=== PATIENT | male | born 1990 | race Caucasian/White ===

== ENCOUNTER → 2017-12-18 11:21 | Outpatient (REF) | payer MEDICAID, SELFPAY ==
[2017-12-18 14:03] LABS: Amphetamine/Metha Screen,Urine Negative ng/mL (<1000); Barbiturates Screen,Urine Negative ng/mL (<200); Benzodiazepines Screen,Urine Positive ng/mL (200); Cannabinoid Screen,Urine Positive ng/mL (<50); Cocaine Screen,Urine Negative ng/g (<300); Methadone Screen,Urine Negative ng/mL (<300); Opiate Screen,Urine Positive ng/mL (<300); Phencyclidine Screen,Urine Negative ng/mL (<25)
== END ==
LOC: LAB 11:21
PROVIDERS: Visit Provider Physician Assistant
DX: Z79.899 Other long term (current) drug therapy (principal)
CPT/HCPCS: 80305

== ENCOUNTER 2017-12-27 14:09 | Emergency (ER) | payer MEDICAID, SELFPAY ==
--- NOTE | 2017-12-27 | CT_ITS ---
CT cervical spine wo con Ordering Physician: Ga Jacobs MD Patient Age: 27 years: Male HISTORY: Dizziness. Fall. Laceration chin and above left. TECHNIQUE: Helical CT scanning performed the cervical spine with sagittal and coronal reconstructions on CT workstation COMPARISON :CT facial bones from today no prior studies available FINDINGS Cervical spine is intact with no fracture nor subluxation. . The vertebral bodies are intact. Normal alignment. Prevertebral soft tissues normal. Disc spaces well-maintained. The facets satisfactory with normal relationships. C1-C2 appearance and relationships normal. Base of skull intact. . Generous lymphoid tissue along the base the time reflecting generous lingual tonsil most likely. Scattered moderate-sized nodes throughout the neck and typical of age reflect reactive nodes in this thin patient. . Dental caries again noted and warrants dental follow-up IMPRESSION: Cervical spine intact with no fracture nor subluxation. No acute findings . dental caries warrants dental follow-up .
[2017-12-27 13:46] VITALS: BP 139/75; PULSE 82; RESP 22; TEMP 36.7; O2SAT 100
--- NOTE | 2017-12-27 13:57 | CT_ITS ---
CT facial bones wo con Ordering Physician: Ga Jacobs MD Patient Age: 27 years: Male HISTORY.: ITS.REASON: seizure, fell and hit head Laceration at chin and above LiP TECHNIQUE: Helical CT scanning performed through the facial bones with sagittal and coronal reconstructions on CT workstation. COMPARISON :None FINDINGS No discrete acute facial bone fractures. Slight contour variation the left nasal bone may reflect anatomical variation versus old injury. The Lack of soft tissue swelling here speaks against acute fracture Moderate-generous Right ethmoid sinus disease., Diffuse opacification of several of the posterior right ethmoid with mild mucosal thickening elsewhere throughout ethmoid air cells.. Most likely inflammatory changes. Doubt hemorrhage is suggested by VRC. Borderline to mild mild mucosal thickening elsewhere throughout the ethmoid air cells extending into left frontal sinus.. No air-fluid levels at sinuses. Sphenoid sinus clear. Frontal sinuses clear. Mild mucosal thickening inferior right maxillary sinus... Mild/moderate engorgement nasal turbinates. Minor deviation nasal septum. Small pao bullosa right middle turbinate noted. Maxillary sinuses are clear except to note mild mucosal thickening inferior right maxillary sinus axial slice 1 The facial bones are intact with no fracture evident. Nasal bone included, intact. Portions of the image skull unremarkable on this study. Note dental caries which would benefit from dental evaluation and follow-up ===IMPRESSION: ======= No facial bone fracture. Incidental paranasal sinus disease Most notable opacity involving posterior right ethmoid air cells.
--- NOTE | 2017-12-27 13:57 | CT_ITS ---
CT head/brain wo con Ordering Physician: Ga Jacobs MD Patient Age: 27 years: Male HISTORY: ITS.REASON: seizure, fell and hit head headach dizziness.. TECHNIQUE: Standard axial CT of head without contrast. Bone and brain windows performed and reviewed. Previous study December 27, 2017 for comparison. FINDINGS: The brain appears within normal limits with no acute adrenal findings. No hemorrhage No mass. No mass effect. No subdural collection. No territorial infarct. The yanez and white matter patterns and interface appears satisfactory. Ventricles and basal cisterns appear normal. Posterior fossa unremarkable.Skull intact.. Mastoid air cells well-developed and clear. Middle ear clear.. Right ethmoid sinus with diffuse mucosal thickening which opacifies several several of the posterior right ethmoid air cells. Borderline mucosal thickening elsewhere at ethmoid & extending into the inferior left frontal sinus. No air-fluid levels at sinuses. Sphenoid sinus clear. Maxillary sinuses are clear except to note mild mucosal thickening inferior right maxillary sinus axial slice 1 . ===IMPRESSION: ======= .. No acute intracranial findings Normal CT of the brain without contrast Incidental paranasal sinus disease as in text
--- NOTE | 2017-12-27 14:03 | XR_ITS ---
XR chest 2V Ordering Physician: Ga Jacobs MD Patient Age: 27 years: Male HISTORY: ITS.REASON: possible seizure, fall, confusion Seizure fall confusion dizzy TECHNIQUE: PA and lateral chest COMPARISON :No previous chest film. FINDINGS The lungs appear well expanded and clear with no active disease. No pneumonia. No pneumothorax. No pleural effusion. Chest wall T-spine unremarkable. The heart is normal in size with shaji and mediastinal structures satisfactory IMPRESSION: Lungs clear no active disease in the chest.
[2017-12-27 14:18] LABS: Basophils % 0.2 % (0.1-2.0); Eosinophils % 0.2 % (0.1-12.0); Hematocrit 49.7 % (42.0-52.0); Lymphocytes % 7.3 K/mm3 (10-50); Mean Corpuscular HGB Conc 32.3 g/dL (31.8-35.4); Mean Corpuscular Volume 96.1 fl (80-94); Mean Platelet Volume 8.1 fl (7.4-10.4); Monocytes # 0.6 K/mm3 (0.1-1.0); Monocytes % 4.1 % (1.7-9.3); Neutrophils # 12.3 K/mm3 (1.8-7.8); Neutrophils % 88.1 % (37.0-80.0); Platelet Count 307 K/mm3 (142-424); Red Blood Count 5.17 M/mm3 (4.60-6.20); Red Cell Distribution Width 13.1 % (11.5-17.5)
[2017-12-27 14:22] LABS: MANUAL DIFFERENTIAL MANUAL DIFFERENTIAL (MANUAL DIFF)
[2017-12-27 14:36] LABS: Alanine Aminotransferase 28 U/L (12-78); Albumin Level 4.5 gm/dL (3.4-5.0); Albumin/Globulin Ratio 1.3 (1.1-1.8); Alkaline Phosphatase 93 U/L (46-116); Anion Gap 19.2 mEq/L (5-15); Aspartate Amino Transferase 21 U/L (15-37); Bilirubin,Total 0.3 mg/dL (0.2-1.0); Blood Urea Nitrogen 14 mg/dL (7-18); Calcium 9.3 mg/dL (8.5-10.1); Carbon Dioxide 20 mmol/L (21.0-32.0); Chloride 102 mmol/L (98-107); Creatinine Clearance Estimated 77 mL/min (0-300); Estimated Glomerular Filt Rate 66 ml/min (>60); GFR (African American) 80 ML/MIN (>60); Globulin 3.6 gm/dl (1.3-3.2); Glucose 180 mg/dL (74-106); Potassium 4.2 mmoL/L (3.5-5.1); Sodium 137 mmol/L (136-145); Total Protein,Serum 8.1 gm/dL (6.4-8.2)
[2017-12-27 14:39] LABS: Acetaminophen 0 ug/mL (10-30); Ethyl Alcohol 0 mg/dL (0-99)
[2017-12-27 14:45] LABS: Lymphocytes % 11 % (10-50); Monocytes % 3 % (2-9); Neutrophils % 85 % (42-76); Total Cells Counted 100
[2017-12-27 14:46] LABS: Platelet Estimate Normal; RBC Morphology Normal
--- NOTE | 2017-12-27 14:56 | [facility].EDSEIZ ---
ED Disposition Clinical Impression: Seizure disorder, Benzodiazepine withdrawal, Anxiety Disposition: Home, Self-Care Condition on Discharge: Fair Instructions: DI for Seizure Disorder -- Adult, DI for Seizure (Not Epilepsy/Seizure Disorder), DI for Seizure Disorder -- Child Additional Instructions: 1- star tdilantin 100 mg po bid. 2- xanax 0.5 mg po bid prn 3- follow up with marti in am. 4- seizure precautions. 5-off work x 3 days 6- return if needed. Prescriptions: ALPRAZolam [Xanax 0.5mg tab] 0.5 mg PO Q12 #6 tab Phenytoin Sodium Extended [Dilantin] 100 mg PO Q12 #60 cap Referrals: Candy Wagner PA [Primary Care Provider] - - Critical Care Critical Care Time: No Attestation: On 12/27/17, the high probability of a clinically significant, sudden or life threatening deterioration of the following system(s) required my full and direct attention, intervention and personal management. The time I documented below is in addition to time spent performing reported procedures but includes the following listed in this critical care notation. Medical Decision Making Vital Signs: 12/27/17 13:46 12/27/17 17:30 Temperature 98.1 F 98.1 F Temperature Source Oral Temporal Artery Scan Pulse Rate 70 Pulse Rate [Right Brachial] 82 Respiratory Rate 22 18 Blood Pressure 125/80 Blood Pressure [Right Arm] 139/75 Blood Pressure Mean [Right Arm] 96 Blood Pressure Source Automatic Cuff Blood Pressure Source [Right Arm] Automatic Cuff Blood Pressure Position Sitting Blood Pressure Position [Right Arm] Sitting 02 Sat by Pulse Oximetry 100 Oxygen Delivery Method Room Air Room Air - Lab Data Lab Results 12/27/17 13:45: WBC 14.0 H, RBC 5.17, Hgb 16.0, Hct 49.7, MCV 96.1 H, MCH 31.0, MCHC 32.3, RDW 13.1, Plt Count 307, MPV 8.1, Neut % (Auto) 88.1 H, Lymph % (Auto) 7.3 L, [place] % (Auto) 4.1, Eos % (Auto) 0.2, Baso % (Auto) 0.2, Neut # (Auto) 12.3 H, Lymph # (Auto) 1.0, [place] # (Auto) 0.6, Eos # (Auto) 0.0, Baso # (Auto) 0.0, Total Counted 100, Neutrophils % (Manual) 85 H, Lymphocytes % (Manual) 11, Atypical Lymphs % 1.0, Monocytes % (Manual) 3, Platelet Estimate Normal, RBC Morphology Normal 12/27/17 13:45: Sodium 137, Potassium 4.2, Chloride 102, Carbon Dioxide 20 L, Anion Gap 19.2 H, BUN 14, Creatinine 1.30, Estimated Creat Clear 77, Estimated GFR 66, Est GFR ( Amer) 80, Glucose 180 H, Calcium 9.3, Total Bilirubin 0.3, AST 21, ALT 28, Alkaline Phosphatase 93, Total Protein 8.1, Albumin 4.5, Globulin 3.6 H, Albumin/Globulin Ratio 1.3, Acetaminophen 0 L, Plasma/Serum Alcohol 0 12/27/17 15:10: Lactic Acid 1.2 12/27/17 15:28: Urine Color Yellow, Urine Appearance Cloudy, Urine pH 5.5, Ur Specific [place] >= 1.030, Urine Protein 2+, Urine Glucose (UA) Negative, Urine Ketones Negative, Urine Blood Trace-i, Urine Nitrate Negative, Urine Bilirubin Negative, Urine Urobilinogen 0.2, Ur Leukocyte Esterase Negative, Urine RBC Occasional, Urine WBC Occasional, Amorphous Sediment 1+, Urine Bacteria 2+, Coarse Granular Casts 3-5, Urine Mucus 1+ 12/27/17 15:28: Urine Opiates Screen Negative, Ur Barbituates Screen Negative, Ur Phencyclidine Scrn Negative, Ur Amphetamines Screen Negative, U Methamphetamines Scrn Negative, U Benzodiazepines Scrn Negative, Urine Cocaine Screen Negative, U Marijuana (THC) Screen Negative Result diagrams: 12/27/17 13:45 12/27/17 13:45 Orders (Tests/Meds): ED MEDICATIONS Discontinued Medications Generic Name Dose Route Start Last Admin Trade Name Freq PRN Reason Stop Dose Admin Ceftriaxone Sodium 1 gm/ 50 mls @ 100 mls/hr 12/27/17 14:45 12/27/17 15:23 Sodium Chloride IV 01/10/18 14:44 100 mls/hr Q24H HUNTER Administration Protocol Phenytoin Sodium 1,000 mg/ 120 mls @ 300 mls/hr 12/27/17 16:44 12/27/17 17:11 Sodium Chloride IV 12/27/17 17:07 300 mls/hr ONCE ONE Administration ORDERS Category Date Time Status CT facial bones wo con Stat C
--- NOTE | 2017-12-27 15:00 | ED_ITS ---
ED Disposition Clinical Impression: Seizure disorder, Benzodiazepine withdrawal, Anxiety Disposition: Home, Self-Care Condition on Discharge: Fair Instructions: DI for Seizure Disorder -- Adult, DI for Seizure (Not Epilepsy/ Seizure Disorder), DI for Seizure Disorder -- Child Additional Instructions: 1- star tdilantin 100 mg po bid. 2- xanax 0.5 mg po bid prn 3- follow up with marti in am. 4- seizure precautions. 5-off work x 3 days 6- return if needed. Prescriptions: ALPRAZolam [Xanax 0.5mg tab] 0.5 mg PO Q12 #6 tab Phenytoin Sodium Extended [Dilantin] 100 mg PO Q12 #60 cap Referrals: Candy Wagner PA [Primary Care Provider] - - Critical Care Critical Care Time: No Attestation: On 12/27/17, the high probability of a clinically significant, sudden or life threatening deterioration of the following system(s) required my full and direct attention, intervention and personal management. The time I documented below is in addition to time spent performing reported procedures but includes the following listed in this critical care notation. Medical Decision Making Vital Signs: 12/27/17 13:46 12/27/17 17:30 Temperature 98.1 F 98.1 F Temperature Source Oral Temporal Artery Scan Pulse Rate 70 Pulse Rate [Right Brachial] 82 Respiratory Rate 22 18 Blood Pressure 125/80 Blood Pressure [Right Arm] 139/75 Blood Pressure Mean [Right Arm] 96 Blood Pressure Source Automatic Cuff Blood Pressure Source [Right Arm] Automatic Cuff Blood Pressure Position Sitting Blood Pressure Position [Right Arm] Sitting 02 Sat by Pulse Oximetry 100 Oxygen Delivery Method Room Air Room Air - Lab Data Lab Results 12/27/17 13:45: WBC 14.0 H, RBC 5.17, Hgb 16.0, Hct 49.7, MCV 96.1 H, MCH 31.0, MCHC 32.3, RDW 13.1, Plt Count 307, MPV 8.1, Neut % (Auto) 88.1 H, Lymph % (Auto ) 7.3 L, [place] % (Auto) 4.1, Eos % (Auto) 0.2, Baso % (Auto) 0.2, Neut # (Auto) 12.3 H, Lymph # (Auto) 1.0, [place] # (Auto) 0.6, Eos # (Auto) 0.0, Baso # (Auto) 0.0, Total Counted 100, Neutrophils % (Manual) 85 H, Lymphocytes % (Manual) 11, Atypical Lymphs % 1.0, Monocytes % (Manual) 3, Platelet Estimate Normal, RBC Morphology Normal 12/27/17 13:45: Sodium 137, Potassium 4.2, Chloride 102, Carbon Dioxide 20 L, Anion Gap 19.2 H, BUN 14, Creatinine 1.30, Estimated Creat Clear 77, Estimated GFR 66, Est GFR ( Amer) 80, Glucose 180 H, Calcium 9.3, Total Bilirubin 0.3, AST 21, ALT 28, Alkaline Phosphatase 93, Total Protein 8.1, Albumin 4.5, Globulin 3.6 H, Albumin/Globulin Ratio 1.3, Acetaminophen 0 L, Plasma/Serum Alcohol 0 12/27/17 15:10: Lactic Acid 1.2 12/27/17 15:28: Urine Color Yellow, Urine Appearance Cloudy, Urine pH 5.5, Ur Specific [place] >= 1.030, Urine Protein 2+, Urine Glucose (UA) Negative, Urine Ketones Negative, Urine Blood Trace-i, Urine Nitrate Negative, Urine Bilirubin Negative, Urine Urobilinogen 0.2, Ur Leukocyte Esterase Negative, Urine RBC Occasional, Urine WBC Occasional, Amorphous Sediment 1+, Urine Bacteria 2+, Coarse Granular Casts 3-5, Urine Mucus 1+ 12/27/17 15:28: Urine Opiates Screen Negative, Ur Barbituates Screen Negative, Ur Phencyclidine Scrn Negative, Ur Amphetamines Screen Negative, U Methamphetamines Scrn Negative, U Benzodiazepines Scrn Negative, Urine Cocaine Screen Negative, U Marijuana (THC) Screen Negative Result diagrams: 12/27/17 13:45 12/27/17 13:45 Orders (Tests/Meds): ED MEDICATIONS
[2017-12-27 15:28] LABS: Lactic Acid 1.2 mmol/L (0.4-2.0)
[2017-12-27 15:42] LABS: Microscopic, Urine URINE MICROSCOPIC (MICROSCOPIC)
[2017-12-27 15:44] LABS: Appearance,Urine CLOUDY (Clear); Bilirubin,Urine Negative (Negative); Blood, Urine TRACE-I (Negative); Color,Urine YELLOW (Yellow); Glucose,Urine (UA) Negative (Negative); Ketones,Urine Negative (Negative); Leukocyte Esterase,Urine Negative (Negative); Nitrate,Urine Negative (Negative); PH,Urine 5.5 (5.0-8.5); Protein,Urine 2+ (Negative); Specific Gravity, Urine >= 1.030 (1.005-1.030); Urobilinogen,Urine 0.2 EU/dl (0.2)
[2017-12-27 15:54] LABS: Amphetamine/Metha Screen,Urine Negative ng/mL (<1000); Barbiturates Screen,Urine Negative ng/mL (<200); Benzodiazepines Screen,Urine Negative ng/mL (200); Cannabinoid Screen,Urine Negative ng/mL (<50); Cocaine Screen,Urine Negative ng/g (<300); Methadone Screen,Urine Negative ng/mL (<300); Opiate Screen,Urine Negative ng/mL (<300); Phencyclidine Screen,Urine Negative ng/mL (<25)
[2017-12-27 15:55] LABS: Amorphous Sediment,Urine 1+ /lpf; Bacteria,Urine 2+ /lpf; Mucus,Urine 1+ /lpf; RBC,Urine Occasional #/hpf (0-3); WBC,Urine Occasional #/hpf (0-3)
[2017-12-27 17:30] VITALS: BP 125/80; PULSE 70; RESP 18; TEMP 36.7; O2SAT 98
== END 2017-12-27 17:30 | disposition home or self-care (01) ==
PROVIDERS: Emergency Provider Emergency Medicine; Family Provider Family Medicine; PCP Physician Assistant
DX: G40.909 Epilepsy, unspecified, not intractable, without status epilepticus (principal); F13.239 Sedative, hypnotic or anxiolytic dependence with withdrawal, unspecified; F17.210 Nicotine dependence, cigarettes, uncomplicated; F41.9 Anxiety disorder, unspecified; S00.81XA Abrasion of other part of head, initial encounter; S00.511A Abrasion of lip, initial encounter; W19.XXXA Unspecified fall, initial encounter; Y92.019 Unspecified place in single-family (private) house as the place of occurrence of the external cause
CPT/HCPCS: 36415; 70450; 70486; 71046; 72125; 80053; 80305; 80329; 81001; 83605; 85007; 85025; 87040; 87086; 96365; 96367; 99281